=== PATIENT | male | born 2000 | race Caucasian/White ===

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

== ENCOUNTER 2021-09-16 11:16 | Emergency (ER) | payer OTHER ==
[2021-09-16 11:29] VITALS: BP 118/64; PULSE 89; RESP 18; TEMP 98.2; BMI 27.3
[2021-09-16] MEDS ORDERED: SODIUM CHLORIDE 1,000 ML IV STA (12:39)
[2021-09-16 14:01] LABS: BASO % 0.6 % (0-2.0); EOS % 0.3 % (0-4.5); HEMATOCRIT 46.2 % (35.4-49); HEMOGLOBIN 15.7 GM/dL (11.7-16.9); LYMPH % 19.4 % (8-40); MCH 27.9 pg (25.7-33.7); MCHC 33.9 g/dl (32.0-35.9); MEAN CELL VOLUME 82.3 fl (80-96); MEAN PLT VOLUME 8.4 fl (7.5-11.1); MONO % 10.2 % (3.8-10.2); NEUT % 69.5 % (42.8-82.8); PLATELET COUNT 225 10^3/uL (134-434); RBC 5.62 M/mm3 (4.00-5.60); RDW 13.2 % (11.9-15.9); WHITE BLOOD COUNT 5.9 K/mm3 (4.0-10.0)
[2021-09-16 14:21] LABS: CALCIUM 9.9 mg/dL (8.5-10.1)
[2021-09-16 14:22] LABS: ALBUMIN 4.5 g/dl (3.4-5.0); BLOOD UREA NITROGEN 4.2 mg/dL (7-18)
[2021-09-16 14:26] LABS: TOT PROT 8.2 g/dl (6.4-8.2)
[2021-09-16 14:27] LABS: BILIRUBIN,TOTAL 0.4 mg/dL (0.2-1)
== END 2021-09-16 14:58 | disposition home or self-care (01) ==
LOC: JER 11:16
PROC: 3E0337Z Introduction of Electrolytic and Water Balance Substance into Peripheral Vein, Percutaneous Approach (ICD-10-PCS; principal; 2021-09-16)
DX: R19.7 Diarrhea, unspecified (principal)
CPT/HCPCS: 36415; 80053; 83690; 85025; 99284-25